=== PATIENT | female | born 1990 | race Caucasian/White ===

== ENCOUNTER 2022-09-17 11:00 | Outpatient (CLI) | payer BC, SELFPAY ==
[2022-09-17 11:16] VITALS: BP 116/61; PULSE 99; TEMP 36.7
[2022-09-17 11:51] VITALS: BMI 23.4
[2022-09-17] MEDS: Lactated Ringers 1,000 ML 125 ML IV (11:56)
[2022-09-17 12:14] VITALS: BP 118/56; PULSE 79
--- NOTE | 2022-09-17 12:25 | OP.PCM_ITS ---
Problems Associated Problem List Diagnoses (1) 37 weeks gestation of : (2) Breech position of fetus: Report of Operation Date of Procedure: 09/17/22 Pre-Operative Diagnosis: breech, 37 weeks Post-Operative Diagnosis: same Surgery/Procedure Performed:: Attempted External Cephalic Version Description of Surgical Findings:: Breech head on maternal left environmental health safety manager: Pam Mckinnon Description of Procedure: Was counseled on the risk benefits and alternatives of external cephalic version. Consent was obtained by Dr. Charisma Rich. Ultrasound was performed at bedside and fetus was noted to be in the breech presentation with head in the maternal left quadrant, MATTHEW appears within normal limits. At this time gel was placed on the maternal abdomen the buttocks was attempted to be pushed up however disengagement was difficult. A backwards roll was attempted with limited movement in the head. At this time cardiac activity was monitored and good heart tones were visualized on the ultrasound. After this backwards roll failed a forward roll was attempted after given the patient time to recover and relax. Again ultrasound was performed head was still in the left upper quadrant. Upward movement on the 's buttocks and forward roll of the infant's head was attempted with again limited movement. At this time discussion with the patient was that there was minimal movement and I do not feel that an external cephalic version was going to be successful at this time. heart tones were again evaluated by ultrasound and noted to be within normal limits. Patient is already scheduled for . Discussed with the patient that some ecchymosis may occur on her abdomen. She will monitor for movements. We will keep her on the monitor to ensure reactive heart rate category 1 tracing. Complications none
--- NOTE | 2022-09-17 13:27 | PCM.PN.BLA ---
Progress Note NST: 120s Moderate Variability, Accels 15x15, No decels. Irregular contractions. Reactive Category 1 FHR. Dc home after failed attempt at ECV
== END 2022-09-17 13:30 | disposition home or self-care (01) ==
LOC: WPOUT 11:10 → WP 11:11
PROVIDERS: PCP Internal Medicine; Referring Provider Obstetrics & Gynecology; Visit Provider Obstetrics & Gynecology
DX: O32.1XX0 Maternal care for breech presentation, not applicable or unspecified (principal); Z3A.37 37 weeks gestation of pregnancy; Z53.8 Procedure and treatment not carried out for other reasons
CPT/HCPCS: 96360; 59025; 59050; 59412; 99221; J7120; G0378

== ENCOUNTER 2022-10-01 05:00 | Inpatient (IN) | payer BC, SELFPAY ==
--- NOTE | 2022-09-28 12:32 | HP.PCM_ITS ---
History and Physical Date of Admission: 10/01/22 HPI: The patient is a 32 year old female presenting for pre-operative visit. She is scheduled for , for breech on 10/01/2022. Procedure discussed along with risks, benefits and complications. Other alternatives discussed for management. Consent form signed? Yes. ? ? PAST MEDICAL HISTORY PAST MEDICAL HISTORY Diagnosis Date ? Anemia ? ? Meningitis ? ? viral, age 10 ? Menstrual migraine, with intractable migraine, so stated, with status migrainosus ? ? Vulvodynia ? ? ? PAST SURGICAL HISTORY PAST SURGICAL HISTORY Procedure Laterality Date ? PAST SURGICAL HISTORY OF ? ? ? mole removed from back of head ? ? ? CURRENT MEDICATIONS Current Outpatient Medications Medication Sig Dispense Refill ? famotidine (PEPCID ORAL) Take by mouth. ? ? ? calcium carbonate (TUMS ORAL) Take by mouth. ? ? ? PNV no.153/FA/om3/dha/epa/fish ( GUMMIES ORAL) Take by mouth. ? ? ? Ferrous Sulfate (HIGH POTENCY IRON) 27 mg iron tab Take by mouth. ? ? ? No current facility-administered medications for this visit. ? ? ALLERGIES: Cat Dander, Seasonal Allergies, and Wool ? PERSONAL HISTORY: SOCIAL HISTORY Social History ? Tobacco Use ? Smoking status: Never ? Smokeless tobacco: Never Vaping Use ? Vaping Use: Never used Substance Use Topics ? Alcohol use: Not Currently ? Drug use: Never ? FAMILY HISTORY: FAMILY HISTORY FAMILY HISTORY Problem Relation Age of Onset ? Depression Mother ? ? Depression Father ? ? Dementia Father ? ? other (throat cancer) Father ? ? No Known Problems Sister ? ? other (acid reflux) Sister ? ? Breast Cancer Maternal Grandmother ? ? Dementia Maternal Grandfather ? ? Heart Maternal Grandfather ? ? No Known Problems Paternal Grandmother ? ? Parkinson?s Disease Paternal Grandfather ? ? Drug abuse Paternal Grandfather ? ? ? REVIEW OF SYMPTOMS: GENERAL: denies fevers or chills ENDOCRINOLOGY: has not been on steroids Cardiology : denies palpitations or chest pain Respiratory: denies SOB or cough Hematology: denies history of prolonged bleeding or easy bruising or VTE Allergy: Denies history of personal or family history of allergy to anesthesia ? PHYSICAL EXAMINATION: ? VITALS: Last menstrual period 01/01/2022. ? GENERAL: The patient is well nourished, well hydrated in no acute distress. , The patient is oriented to time, place, and person. NECK: Supple. No lynphadenopathy, normal thyroid, no thyromegaly. LUNGS: Clear to auscultation bilaterally. no wheezes, rhonchi or rales HEART: Regular rate and rhythm, Normal heart sounds, and No murmurs or gallops abd- soft, nontender, gravid ext- trace edema, symmetrical ? IMPRESSION: 32 YOG w/ Estimated Date of Delivery: 10/08/22 and breech, failed ECV attempt ? PLAN: The risks/benefits/alternatives and personal involved for the planned c- section were reviewed with the patient. Her questions were answered to her satisfaction and she desires to proceed. Consent was signed. I reviewed with her postop instructions and expectations. ? ? I have reviewed and updated past medical and surgical history, medications and allergies Assessment & Plan Assessment/Plan (1) Breech position of fetus: (2) Advanced maternal age during in third trimester: (3) 39 weeks gestation of :
[2022-10-01] VITALS (21 sets, daily range): BP systolic 105–127; BP diastolic 53–84; PULSE 88–114; RESP 12–20; TEMP 36.4–37.2; O2SAT 95–100; BMI 24.3
[2022-10-01] MEDS: Lactated Ringers 1,000 ML 999 ML IV (05:40)
[2022-10-01 05:52] LABS: Absolute Neutrophil Count 10.5 X10^3/uL (2.0-7.7); Basophil# 0.05 X10^3/uL; Basophil% 0.4 % (0-1); Eosinophils% 1.5 % (0-5); Hematocrit 35.5 % (37-47); Hemoglobin 12.3 g/dL (12.0-15.0); Lymphocyte % 12.3 % (19-41); Mean Corp Hgb Conc 34.6 g/dL (32-36); Mean Corpuscular Hgb 33.2 pg (27.0-32.0); Mean Corpuscular Volume 95.7 fL (81-99); Monocyte# 0.63 X10^3/uL; Monocyte% 4.8 % (0-10); NRBC Flagged by Analyzer 0 % (0-5); Neutrophil # 10.54 X10^3/uL (2.7-7.7); Neutrophil % 80.7 % (47-70); Platelet Count 279 K/mm3 (150-450); RBC Distribution Width SD 45.3 fl (35.1-43.9); Red Blood Count 3.71 M/mm3 (4.2-5.4); White Blood Count 13.1 K/mm3 (4.4-11.0)
[2022-10-01] MEDS: Acetaminophen 500 MG Tablet 1000 MG PO ×4 (06:00→23:29)
[2022-10-01] MEDS: Lactated Ringers 1,000 ML 150 ML IV (06:40)
[2022-10-01] MEDS: Sodium Citrate/Citric Acid 30 ML UDC PO (07:13)
--- NOTE | 2022-10-01 07:15 | NURSING ---
bedside report given to Ophelia Bass RN who is assuming care of pt at this time
[2022-10-01] MEDS: Cefazolin 2 GM in 0.9% Normal Saline 100 ML IV (07:41)
--- NOTE | 2022-10-01 07:42 | EX.PCM.OBRPT ---
Assessment & Plan (1) Breech position of fetus: (2) Advanced maternal age during in third trimester: (3) 39 weeks gestation of : (4) delivery delivered: Maternal Data Information Final BERENICE: 10/08/22 Gestational age: 39 Details Operative Information Date of Procedure: 10/01/22 Pre-Operative Diagnosis: breech Post-Operative Diagnosis: same Classification: Scheduled Procedure Type: low transverse track repair laborer #1: Nicki Graf Type of Anesthesia: Spinal Anesthesiologist: Demond Longo Special Medications: duramorph Antibiotic Given: Ancef 2 grams IV x1 Drain: Peguero to straight drain Estimated Blood Loss: 800 Fluids Replaced: 850 ml Procedure Start Time: :02 Procedure Stop Time: : Time of Delivery: :05 Findings Description of Procedure: the patient was taken to the operating room. She was prepped and draped in the dorsal supine position with a leftward tilt. A Pfannenstiel skin incision was made approximately 2 cm above the symphysis pubis and carried through to underlying layer fascia with the scalpel. The fascia was incised incised in the midline and extended laterally with the Pagan scissors. The fascia was dissected off the rectus muscles with blunt and sharp dissection. The rectus muscles were in the midline and the peritoneum was entered bluntly. The peritoneal incision was stretched and the bladder blade was placed. The uterine incision was made in a low transverse fashion with the scalpel and extended superiorly and inferiorly with blunt dissection. The amniotic membranes were ruptured bluntly and clear amniotic fluid returned. The 's head was brought to the incision in the flexed position and delivered without difficulty. The remainder of the was delivered with gentle traction and fundal pressure in the standard fashion. The mouth and nares were bulb suctioned. The cord was clamped and cut as the was stimulated. Cord clamping was delayed. The infant was handed off to the waiting nursing staff. The placenta was delivered with fundal massage and gentle traction in the standard fashion. The uterus was exteriorized and cleared of all clots and debris. The cervix was dilated with a ring forcep. The uterine incision was closed with #1 Vicryl in a running locked fashion. A second layer of the same suture was used in an imbricating fashion. The incision was examined and was found to be hemostatic. The uterus was placed back into the peritoneal cavity and hemostasis was again confirmed. The rectus muscles were examined and any bleeding was Bovie cauterized. The parietal peritoneum and rectus muscles were closed en bloc with an 0 Vicryl running suture. The surgical teams outer gloves were then changed. The rectus fascia was examined and any bleeding was Bovie cauterized and the rectus fascia was closed with 1 Vicryl suture in a running standard fashion. The subcutaneous tissue was examining and any bleeding was Bovie cauterized. The subcutaneous tissue was reapproximated with 3-0 Vicryl suture. The skin was closed in a subcuticular fashion by the DATA TECHNICIAN with me present in the labor and delivery suite. I performed the remainder of the procedure with assistance. All sponge, lap, and needle counts were correct. The patient was taken to her room for recovery in a stable condition. Presentation: Positive for Complete Breech Amniotic Membrane Rupture Type: Artificial Amniotic Fluid Description: Clear Placental Delivery Description: Expressed Placenta Disposition: [facility] Cord Vessel Description: 3 Vessels Cord Entanglement: None A Gender: Female (Hollis De La Rosa) (1 minute): 9 (5 minute): 9 Delayed Cord Clamping: Yes Complications Complications: none
[2022-10-01 08:09] LABS: Syphilis Antibodies Non-reactive
[2022-10-01] MEDS: Oxytocin 15 Units/NS 250ml 15 UNITS/250 ML IV.SOLN 83 UNITS IV (08:50)
[2022-10-01] MEDS: Ketorolac 30 MG/ML Syringe IV ×3 (10:51→23:14)
[2022-10-01] MEDS: Lactated Ringers 1,000 ML 100 ML IV (12:08)
[2022-10-01] MEDS: 0.9% Saline Lock 10 ML Syringe IV ×3 (15:35→23:14)
[2022-10-01] MEDS: Hydrocortisone 2.5% Crm 1 APPLIC TOPICAL ×2 (17:35→23:25)
--- NOTE | 2022-10-01 17:36 | NURSING ---
1725-called dr denson d/t pt rash/itching to abd. ok with hydrocortisone q4h prn
[2022-10-02 04:30] VITALS: BP 108/58; PULSE 87; RESP 18; TEMP 36.6; O2SAT 98
[2022-10-02] MEDS: Acetaminophen 500 MG Tablet 1000 MG PO ×4 (05:37→22:54)
[2022-10-02] MEDS: Ketorolac 30 MG/ML Syringe IV (05:37)
[2022-10-02] MEDS: 0.9% Saline Lock 10 ML Syringe IV (05:38)
[2022-10-02 05:54] LABS: Hematocrit 29.7 % (37-47); Mean Corp Hgb Conc 33.7 g/dL (32-36); Mean Platelet Vol. 9.8 fl (6.2-12.0); Platelet Count 226 K/mm3 (150-450); RBC Distribution Width CV 13.4 % (11.6-14.6); RBC Distribution Width SD 47.5 fl (35.1-43.9); Red Blood Count 3.03 M/mm3 (4.2-5.4); White Blood Count 14.3 K/mm3 (4.4-11.0)
--- NOTE | 2022-10-02 07:30 | NURSING ---
Urinary catheter not in place when this RN assumed care. Unsure of what time catheter was removed.
[2022-10-02 08:05] VITALS: BP 115/58; PULSE 96; RESP 16; TEMP 36.7; O2SAT 96
[2022-10-02] MEDS: Senna/Docusate Sodium 1 Tablet PO (09:43)
--- NOTE | 2022-10-02 09:45 | PN_ITS ---
Subjective Subjective patient seen at bedside, doing well. Patient reports good pain control. lochia mild. Objective Data Objective Data Vital Signs: Vital Signs Temp Pulse Resp BP Pulse Ox O2 Del Method 98.1 F 96 16 115/58 L 96 Room Air 10/02/22 08:05 10/02/22 08:05 10/02/22 08:05 10/02/22 08:05 10/02/22 08:05 10/02/22 08:05 Oxygen Delivery Method Room Air Weight: 58.423 kg Body Mass Index (BMI) 24.3 Intake & Output: Intake and Output for Last 24 Hours 09/30/22 10/01/22 10/02/22 23:59 23:59 23:59 Intake Total 3817.5 / 3817.5 Output Total 2200 / 2200 Balance 1617.5 / 1617.5 Lab / Micro Data Result Diagrams: 10/02/22 05:47 Labs: Laboratory Results - last 24 hr 10/02/22 05:47: WBC 14.3 H, RBC 3.03 L, Hgb 10.0 L, Hct 29.7 L, MCV 98.0, MCH 3 3.0 H, MCHC 33.7, RDW Std Deviation 47.5 H, RDW Coeff of Tomeka 13.4, Plt Count 226, MPV 9.8 Physical Exam Const alert and oriented x3 General Appearance: cooperative HEENT normocephalic Neck General: normal visual inspection GI soft to palpation and non-distended GI Narrative: Fundus firm Extremity normal to inspection and no calf tenderness Skin no rashes or lesions noted Neuro oriented x3 and CN's II-XII intact bilaterally Psych mental status grossly normal Assessment & Plan Assessment/Plan (1) delivery delivered: (2) Breech position of fetus: PLAN: Plan POD#1 , Doing well Routine care pain mgmt monitor VS ambulation
[2022-10-02] MEDS: Ibuprofen 600 MG Tablet PO ×3 (11:37→22:54)
[2022-10-02] MEDS: Hydrocortisone 2.5% Crm 1 APPLIC TOPICAL (11:39)
[2022-10-02 13:59] VITALS: BP 103/70; PULSE 95; RESP 16; TEMP 37; O2SAT 98
[2022-10-02 19:46] VITALS: BP 110/62; PULSE 92; RESP 14; TEMP 36.8; O2SAT 97
[2022-10-03 02:43] VITALS: BP 107/71; PULSE 91; RESP 14; TEMP 36.1; O2SAT 96
[2022-10-03] MEDS: Acetaminophen 500 MG Tablet 1000 MG PO ×2 (05:40→11:43)
[2022-10-03] MEDS: Ibuprofen 600 MG Tablet PO ×2 (05:41→11:42)
[2022-10-03 08:19] VITALS: BP 115/58; PULSE 91; RESP 16; TEMP 36.6
--- NOTE | 2022-10-03 08:29 | DCINST_ITS ---
Discharge Instructions Procedure Diet Discharge Diet: No restrictions Activity May resume sexual activity in: 6-8 weeks Lifting Restrictions: 25 Dressing / Incision Call your doctor if your incision/area has: Continuous Slow Oozing, Sudden Increased Bleeding, Increased Pain/ Swelling, Increased Redness, Foul Smelling Discharge and Swelling at the incision site Call your doctor if you observe: Fever of 101 or Higher, Inability to urinate, Using more than 1 pad per hour and Uncontrolled pain Additional Dressing/Incision Instructions:: remove dressing at 7 days post op- if it becomes saturated prior to that time you may remove it. Let soap and water run over incision sites and dab dry. keep incision clean and dry. Follow Up Care Please Follow Up With: Pam Mckinnon MD When: 1-2 weeks post of incision check and again at 6 weeks post . [phone] Test Results: Test results from this visit will be discussed in further detail at your follow- up appointment, if applicable. Discharge Plan Admission Admit Date/Time: 10/01/22 05:00 Attending Provider: Charisma Rich Primary Care Provider: Andree Gonzalez NP Discharge Orders/Prescriptions Prescriptions: New acetaminophen 500 mg Tablet 1,000 mg PO Q6H Qty: 0 0RF ibuprofen 600 mg Tablet 600 mg PO Q6H Qty: 0 0RF Continued cxcerfsf-zsi-[id number]-FA 1 mg Tablet 1 tab PO DAILY famotidine 10 mg Tablet 20 mg PO PRN PRN (Reason: Heartburn) calcium carbonate [Tums] 300 mg (750 mg) Tablet,Chewable 1 tab PO PRN PRN (Reason: Heartburn) Referrals / Follow Up: Andree Gonzalez NP, [employer] LEADER-[employer] [Primary Care Provider] - Disposition Disposition (needs filled in before D/C Order can be placed): Home, Self Care
--- NOTE | 2022-10-03 08:29 | PCM.PROGNOTE ---
Subjective Subjective patient seen at bedside, doing well. Patient reports good pain control. lochia mild. passing flatus. breast feeding. Objective Data Objective Data Vital Signs: Vital Signs Temp Pulse Resp BP Pulse Ox O2 Del Method 97.8 F 91 16 115/58 L 96 Room Air 10/03/22 08:19 10/03/22 08:19 10/03/22 08:19 10/03/22 08:19 10/03/22 02:43 10/03/22 08:19 Oxygen Delivery Method Room Air Weight: 58.423 kg Body Mass Index (BMI) 24.3 Intake & Output: Intake and Output for Last 24 Hours 10/01/22 10/02/22 10/03/22 23:59 23:59 23:59 Intake Total 3817.5 / 3817.5 500 / 500 Output Total 2200 / 2200 Balance 1617.5 / 1617.5 500 / 500 Lab / Micro Data Result Diagrams: 10/02/22 05:47 Physical Exam Const alert and oriented x3 General Appearance: cooperative HEENT normocephalic Neck General: normal visual inspection GI soft to palpation and non-distended GI Narrative: Fundus firm Extremity normal to inspection and no calf tenderness Skin no rashes or lesions noted Neuro oriented x3 and CN's II-XII intact bilaterally Psych mental status grossly normal Assessment & Plan Assessment/Plan (1) delivery delivered: PLAN: Plan POD#2 , Doing well Routine care pain mgmt monitor VS ambulation dc home
--- NOTE | 2022-10-03 08:37 | PCM.DC.BLA ---
Discharge Summary Date of Admission: 10/01/22 Date of Discharge: 10/03/22 Summary: Patient underwent a primary low transverse section for breech presentation at 39 weeks gestation performed by Dr. Charisma Rich without complication. She had a normal postoperative course and was discharged home on postoperative day #2 in stable condition. Meaningful Use Info Meaningful Use Diagnoses (Choose all that apply): None applicable Discharge Plan Admission Admit Date/Time: 10/01/22 05:00 Attending Provider: Charisma Rich Primary Care Provider: Andree Gonzalez NP Discharge Orders/Prescriptions Prescriptions: New acetaminophen 500 mg Tablet 1,000 mg PO Q6H Qty: 0 0RF ibuprofen 600 mg Tablet 600 mg PO Q6H Qty: 0 0RF Continued [id number]-FA 1 mg Tablet 1 tab PO DAILY famotidine 10 mg Tablet 20 mg PO PRN PRN (Reason: Heartburn) calcium carbonate [Tums] 300 mg (750 mg) Tablet,Chewable 1 tab PO PRN PRN (Reason: Heartburn) Referrals / Follow Up: Andree Gonzalez NP, [employer] OPERATOR-C [Primary Care Provider] - Disposition Disposition (needs filled in before D/C Order can be placed): Home, Self Care
[2022-10-03] MEDS: Senna/Docusate Sodium 1 Tablet PO (11:43)
[2022-10-03 15:23] VITALS: BP 113/70; PULSE 94; RESP 17; TEMP 36.6
== END 2022-10-03 15:45 | disposition home or self-care (01) | DRG 788 ==
PROVIDERS: Admitting Provider Obstetrics & Gynecology; PCP Internal Medicine; Referring Provider Surgery Vascular Surgery; Visit Provider Obstetrics & Gynecology
PROC: 10D00Z1 Extraction of Products of Conception, Low, Open Approach (ICD-10-PCS; CPT 59514; principal; 2022-10-01 06:55)
DX: O32.1XX0 Maternal care for breech presentation, not applicable or unspecified (principal); Z37.0 Single live birth; Z3A.39 39 weeks gestation of pregnancy
CPT/HCPCS: 59050; 85025; 85027; 86780; 86850; 86900; 86901; 99221; J7120; A4216; G0378; J2405